=== PATIENT | female | born 1960 | race Caucasian/White ===

== ENCOUNTER → 2021-03-13 | Outpatient (CLI) | payer BC, OTHER ==
[~2021-03-13] MED LIST: CARVEDILOL3.125 MG PO; CELEBREX 200 M200 M1 PO; CENTRUM SILVER1 EAC4 PO; CLONAZEPAM 1 MG1 M1 PO; COVARYX TABLET1 EACH PO; EVOXAC30 MG PO; FISH OIL 1,001000 M2 PO; FOLIC ACID1 MG PO; GELATIN600 MG PO; GLUCOSAMINE &1 EACH PO; KRILL OIL 1,001 EAC1 PO; LEVOTHYROXINE 0.1 MG PO; METHOTREXATE 22.5 MG PO; PRILOSEC40 MG PO; RESTASIS1 EACH OPHTHALMIC; ROBAXIN 750 MG750 M1 PO; TOPAMAX 100 MG100 MG PO; VITAMIN E400 UNIT PO; ZANTAC 150MG T150 MG PO; ZOLOFT50 MG PO
== END ==
LOC: SJCVCIMAG 09:29
PROVIDERS: ATTEND Internal Medicine
DX: I50.9 Heart failure, unspecified (principal); E78.5 Hyperlipidemia, unspecified; K21.9 Gastro-esophageal reflux disease without esophagitis; E03.9 Hypothyroidism, unspecified; I11.0 Hypertensive heart disease with heart failure; Z79.891 Long term (current) use of opiate analgesic; Z88.1 Allergy status to other antibiotic agents; Z86.79 Personal history of other diseases of the circulatory system; Z79.899 Other long term (current) drug therapy; Z87.891 Personal history of nicotine dependence